=== PATIENT | male | born 1990 | race Caucasian/White ===

== ENCOUNTER 2023-02-18 18:55 | Emergency (ER) | payer OTHER, BC ==
[~2023-02-18] VITALS: Ht 188 cm; Wt 108.0 kg
[2023-02-18 19:09] VITALS: BP 127/94; PULSE 61; RESP 14; TEMP 99; O2SAT 98
[2023-02-18] MEDS ORDERED: HYDROcodone/APAP 5/325 MG 1 TAB TAB PO ONE (20:20)
== END 2023-02-18 22:06 | disposition home or self-care (01) ==
LOC: MED 18:55
DX: S76.012A Strain of muscle, fascia and tendon of left hip, initial encounter (principal); S39.012A Strain of muscle, fascia and tendon of lower back, initial encounter; R51.9 Headache, unspecified; Z88.0 Allergy status to penicillin; V43.52XA Car driver injured in collision with other type car in traffic accident, initial encounter; Y93.89 Activity, other specified; Y92.410 Unspecified street and highway as the place of occurrence of the external cause; Y99.8 Other external cause status
CPT/HCPCS: 71045; 72170; 99284